=== PATIENT | female | born 1985 | race Caucasian/White ===

== ENCOUNTER → 2017-12-01 10:07 | Outpatient (CLI) | payer OTHER, SELFPAY ==
--- NOTE | 2017-12-01 10:11 | RAD_ITS ---
STUDY: X-RAY - RIGHT HAND, ATTENTION THIRD FINGER REASON FOR EXAM: Female, 32 years old. Injury. TECHNIQUE: 3 view(s) of the finger were obtained. COMPARISON: None. FINDINGS: Normal metacarpal head. Normal metacarpophalangeal joint. Normal proximal phalanx. Normal middle phalanx. Normal distal phalanx. Normal proximal interphalangeal joint. Normal distal interphalangeal joint. Soft tissue swelling. RAD/Finger(s) Min 2 Views IMPRESSION: Soft tissue swelling. No fracture is seen. Electronically Signed: Abdon Holder MD at 10:37 EDT Tel [phone], Service support ,
== END ==
PROVIDERS: Visit Provider Physician Assistant Surgical
DX: S60.031A Contusion of right middle finger without damage to nail, initial encounter (principal)
CPT/HCPCS: 73140

== ENCOUNTER 2017-12-28 09:49 | Emergency (ER) | payer OTHER, SELFPAY ==
[2017-12-28 09:50] VITALS: BP 147/88; PULSE 107; RESP 14; TEMP 36.6; O2SAT 98; BMI 25.0
[2017-12-28 10:07] VITALS: BP 144/97; PULSE 92; RESP 13; O2SAT 100
--- NOTE | 2017-12-28 10:07 | RAD_ITS ---
STUDY: X-RAY CHEST REASON FOR EXAM: Female, 32 years old. 3 day history of chest pain. TECHNIQUE: Single AP portable view of the chest. COMPARISON: None. FINDINGS: EKG electrodes are seen. The lungs are clear and expanded. There is no demonstrated pleural abnormality. Normal size heart. Normal mediastinum and kael. Normal visualized pulmonary arteries. Normal visualized aortic arch and descending thoracic aorta. Normal visualized thoracic spine. Normal visualized ribs, clavicles, and shoulders. There is no demonstrated abnormality of the visualized soft tissue structures of the upper abdomen. RAD/Chest 1 View (Portable) IMPRESSION: Normal x-ray examination of the chest. Electronically Signed: Abdon Holder MD at 10:44 EDT Tel [phone], Service support ,
--- NOTE | 2017-12-28 10:07 | EKG12_ITS ---
Test Reason : CP Blood Pressure : / mmHG Vent. Rate : 092 BPM Atrial Rate : 092 BPM P-R Int : 132 ms QRS Dur : 088 ms QT Int : 350 ms P-R-T Axes : 070 090 044 degrees QTc Int : 432 ms Normal sinus rhythm Normal ECG Confirmed by RONNIE BARRIOS, RICARDO ([id number]), editorial director ITALO WANG ([id number] on 01/02/2018 2:07:11 PM Referred By: HERMINIA Confirmed By:RICARDO TRUJILLO MD
[2017-12-28 10:09] VITALS: O2SAT 100
[2017-12-28] MEDS: Ibuprofen 200 MG Tablet 400 MG PO (10:16)
[2017-12-28] MEDS: 0.9% Normal Saline 1,000 ML 1000 ML IV (10:16)
[2017-12-28 10:23] LABS: Absolute Lymphocyte Count 2.74 X10^3/ul (0.83-4.51); Absolute Neutrophil Count 5.9 X10^3/uL (2.0-7.7); Basophil# 0.03 X10^3/uL; Basophil% 0.3 % (0-1); Eosinophil# 0.13 X10^3/uL; Eosinophils% 1.4 % (0-5); Hematocrit 42.5 % (37-47); Hemoglobin 14.5 g/dl (12.0-15.0); Lymphocyte # 2.74 X10^3/ul (4.0); Lymphocyte % 29.1 % (19-41); Mean Corp Hgb Conc 34.1 g/gl (32-36); Mean Corpuscular Hgb 31.9 pg (27.0-32.0); Mean Corpuscular Volume 93.6 fL (81-99); Mean Platelet Vol. 10.4 fl (6.2-12.0); Monocyte# 0.64 X10^3/uL; Monocyte% 6.8 % (0-10); Neutrophil # 5.87 X10^3/uL (2.7-7.7); Neutrophil % 62.2 % (47-70); Platelet Count 255 K/mm3 (150-450); RBC Distribution Width CV 12.9 % (11.6-14.6); RBC Distribution Width SD 44.4 fl (35.1-43.9); Red Blood Count 4.54 M/mm3 (4.2-5.4); White Blood Count 9.4 K/mm3 (4.4-11.0)
[2017-12-28 10:27] LABS: POSITIVE COUNT NO; POSITIVE DIFFERENTIAL NO; POSITIVE MORPHOLOGY NO
[2017-12-28 10:34] LABS: Bacteria 0 SEEN /hpf (None Seen); Mucous, Urine 0 SEEN /hpf (<or=2+); Squamous Epithelial Cells - UA 0 SEEN /hpf (5-10)
[2017-12-28 10:37] LABS: Anion Gap 6 (5-15); BUN 6 mg/dL (7-18); BUN/Creat Ratio 7.3 RATIO (10-20); Calcium,Total 8.7 mg/dL (8.5-10.1); Chloride 106 mmol/L (98-107); Creatinine, Serum 0.82 mg/dL (0.55-1.02); EST Glomerular Filtration Rate 86 mL/min (>60); Est Glom Filt Rate - Afr Amer 104 mL/min (>60); Estimated Creatinine Clearance 87.38 ml/min; Glucose 112 mg/dL (74-106); Pregnancy, Serum, hCG Quali. NEGATIVE Negative (0-9 Nonpreg); Sodium Level 138 mmol/L (136-145)
[2017-12-28 10:44] LABS: D-Dimer Quantitative (DVT/PE) 0.41 FEU/ug/m (0.27-0.49)
[2017-12-28 10:47] LABS: Color, Urine Yellow (Yellow); Glucose, Dipstick Normal (Normal); Ketone-Dipstick Negative (Negative); Leukocyte Esterase-Dipstick 25 /ul (Negative); Nitrite-Dipstick Negative (Negative); Occult Blood-Urine 10 /ul (Negative); Protein-Dipstick Negative (Negative); Urine Bilirubin Dipstick Negative (Negative); Urine Clarity Clear (Clear); Urine Urobilinogen Normal (Normal)
[2017-12-28 10:53] LABS: Red Blood Cells-Urine 0-5 SEEN /hpf (0-5); White Blood Cells 0-5 SEEN /hpf (0-5)
--- NOTE | 2017-12-28 11:01 | ED.DCSUM_ITS ---
- ER Visit Summary Date of Service: 12/28/17 Chief Complaint: Chest pain History of Present Illness: The patient is a 32 F with no primary care physician. She reports that she has chest pain that began 3 days ago. Sick continuous waxing and waning pain. It is sharp. It is above her left breast and radiates down below her left breast. Is 10 out of 10 at worst and 410 currently. Is worsened by coughing. It is relieved by not coughing. She reports that she has shortness of breath began at 4 AM. No personal history of DVT. No recent travel. No ankle swelling or calf pain. On review of systems patient complains of frequent urination for the past 2 weeks. No dysuria. Physical Examination: Vitals: Stable. Afebrile. General: Well-nourished and well-developed. Head: Normocephalic atraumatic. Neck: Supple, no lymphadenopathy. No JVD. Nontender. Cardiovascular: Regular rate and rhythm. No murmurs. Respiratory: No respiratory distress. Clear to auscultation bilaterally. Mild tenderness palpation over the left side of her chest that does reproduce her pain. Abdominal: Soft, nontender, nondistended, normal bowel sounds. No guarding, rebound, or peritoneal signs. Back: Nontender. Extremities: Nontender, no edema. Skin: Normal color, no rash. Neurologic: Alert and oriented ?3. Cranial nerves II through XII are intact. Normal strength and sensation. Psych: Normal affect. Test Results: EKG is sinus at [address] changes. Is unchanged since January of last year. Chest x-ray is normal. Troponin, d-dimer, test are negative. Urinalysis is negative. Chem-7 is more for BUN of 6 and glucose 112. CBC is normal. Emergency Department Course and Treatment: Patient was treated with ibuprofen p.o. and is resting comfortably. Treatment Plan: Patient will be discharged with instructions to follow-up with Dr. Bryce Selby III in 1 week if not improving. She will be placed on naproxen. Return to the emergency department for any worsening symptoms. Disposition: To home in improved and stable condition. Impression: 1. Atypical chest pain. 2. DANE score of 0. This note was generated with [employer] software. It may contain incorrect words, spelling, and punctuation that were not noted in review of the chart prior to signing ED Disposition - Plan for ED Patient: Chief Complaint: Chest Pain Instructions: ED Chest Pain Atypical Unkn Cause Prescriptions: Naproxen [Naprosyn] 500 mg PO BID #14 tablet Referrals: Bryce Selby III, MD [STAFF PHYSICIAN] - 1 Week if not improving
[2017-12-28 11:16] VITALS: BP 121/90; PULSE 84; RESP 16; O2SAT 98
--- NOTE | 2017-12-28 11:17 | ED.RN ---
THIS NURSE REVIEWED D/C INSTRUCTIONS WITH PT. PT VERBALIZED UNDERSTANDING OF INSTRUCTIONS. IV D/C. IV CATHETER INTACT. PT TOLERATED WELL. PT DENIES FURTHER NEEDS OR QUESTIONS AT THIS TIME.
== END 2017-12-28 11:18 | disposition home or self-care (01) ==
PROVIDERS: Emergency Provider Emergency Medicine
DX: R07.89 Other chest pain (principal); Z72.0 Tobacco use
CPT/HCPCS: 71045; 80048; 81001; 84484; 84703; 85025; 85379; 93005; 96360; 99285; J7030; A4216

== ENCOUNTER 2018-03-13 22:01 | Emergency (ER) | payer OTHER, SELFPAY ==
[2018-03-13 22:02] VITALS: BP 156/103; PULSE 134; RESP 28; TEMP 37.1; O2SAT 98; BMI 22.8
[2018-03-13 22:06] VITALS: PULSE 119; RESP 21; O2SAT 98
[2018-03-13 22:48] LABS: Absolute Neutrophil Count 7.2 X10^3/uL (2.0-7.7); Basophil# 0.06 X10^3/uL; Basophil% 0.4 % (0-1); Differential Indicated SCAN CRITERIA MET; Eosinophil# 0.17 X10^3/uL; Eosinophils% 1.3 % (0-5); Hematocrit 43.3 % (37-47); Lymphocyte % 40.4 % (19-41); Mean Corp Hgb Conc 34.6 g/gl (32-36); Mean Corpuscular Hgb 32.5 pg (27.0-32.0); Mean Corpuscular Volume 93.7 fL (81-99); Mean Platelet Vol. 10.6 fl (6.2-12.0); Monocyte% 5.1 % (0-10); Neutrophil # 7.15 X10^3/uL (2.7-7.7); Neutrophil % 52.7 % (47-70); POSITIVE COUNT NO; POSITIVE DIFFERENTIAL YES; POSITIVE MORPHOLOGY NO; Platelet Count 287 K/mm3 (150-450); RBC Distribution Width CV 12.7 % (11.6-14.6); RBC Distribution Width SD 43.3 fl (35.1-43.9); Red Blood Count 4.62 M/mm3 (4.2-5.4); White Blood Count 13.6 K/mm3 (4.4-11.0)
[2018-03-13 23:07] LABS: AST(SGOT) 20 U/L (15-37); Alanine Aminotransfer ALT/SGPT 21 U/L (13-56); Albumin, Serum 3.9 g/dL (3.2-5.0); Alkaline Phosphatase 61 U/L (45-117); Anion Gap 12 (5-15); BUN 4 mg/dL (7-18); BUN/Creat Ratio 5.7 RATIO (10-20); Calcium,Total 8.7 mg/dL (8.5-10.1); Chloride 102 mmol/L (98-107); EST Glomerular Filtration Rate 103 mL/min (>60); Est Glom Filt Rate - Afr Amer 125 mL/min (>60); Estimated Creatinine Clearance 91.25 ml/min; Globulin 3.9 g/dL (2.2-4.2); Glucose 78 mg/dL (74-106); Potassium 3.7 mmol/L (3.5-5.1); Protein, Total 7.8 g/dL (6.4-8.2); Sodium Level 136 mmol/L (136-145)
[2018-03-13 23:09] LABS: Anisocytosis RARE; Macrocytosis RARE; Platelet Estimate ADEQUATE (ADEQ)
[2018-03-13 23:16] LABS: Bacteria 0 SEEN /hpf (None Seen); Mucous, Urine 0 SEEN /hpf (<or=2+); Red Blood Cells-Urine 0 SEEN /hpf (0-5)
[2018-03-13 23:19] VITALS: BP 118/77; PULSE 111; RESP 18; O2SAT 98
[2018-03-13 23:19] LABS: Color, Urine Straw (Yellow); Glucose, Dipstick Normal (Normal); Ketone-Dipstick Negative (Negative); Leukocyte Esterase-Dipstick 100 /ul (Negative); Nitrite-Dipstick Negative (Negative); Occult Blood-Urine Negative /ul (Negative); Protein-Dipstick Negative (Negative); Specific Gravity, Urine 1.005 (1.002-1.030); Urine Bilirubin Dipstick Negative (Negative); Urine Clarity Clear (Clear); Urine Urobilinogen Normal (Normal); Urine pH 6.5 (5.0 - 8.0)
[2018-03-13 23:21] LABS: Internal QC Validated? YES +Cl - CLEAR BKGD; Pregnancy, Urine Negative Negative
[2018-03-13 23:26] LABS: Squamous Epithelial Cells - UA 0-5 SEEN /hpf (5-10); White Blood Cells 0-5 SEEN /hpf (0-5)
[2018-03-13] MEDS: Nicotine Polacrilex 2 MG GUM PO (23:53)
--- NOTE | 2018-03-13 23:56 | ED.RN ---
THIS NURSE WENT IN TO TALK TO PATIENT, PATIENT ASKED FOR NICOTINE GUM AND WANTED TO KNOW WHAT WAS GOING ON WITH HER. THIS NURSE EXPLAINED THE PROCESS TO THE PATIENT IN DETAIL AND THEN ASKED THE DR IBARRA IF THE PATIENT COULD HAVE SOME NICOTINE GUM, DR. IBARRA ORDERED THE NICOTINE GUM FOR THE PATIENT AND THE PATIENT WAS GIVEN THE GUM AND A SPRITE
[2018-03-14] VITALS (7 sets, daily range): BP systolic 114–130; BP diastolic 84–97; PULSE 82–101; RESP 12–18; O2SAT 96–99
[2018-03-14] LABS: Amphetamine Urine VISTA NEGATIVE (<1000 ng/mL); Barbiturate Urine VISTA NEGATIVE (< 200 ng/mL); Benzodiazepine Urine VISTA NEGATIVE (< 200 ng/mL); Cocaine Urine VISTA NEGATIVE (< 300 ng/mL); Ecstacy Urine VISTA NEGATIVE (< 500 ng/mL); Methadone Urine VISTA NEGATIVE (< 300 ng/mL); PCP Urine VISTA NEGATIVE (< 25 ng/mL); THC Urine VISTA NEGATIVE (< 50 ng/mL); Vista UDS pH Range 6
--- NOTE | 2018-03-14 00:40 | ED.DCSUM_ITS ---
- ER Visit Summary Date of Service: 03/14/18 Chief Complaint: [suicidal, intoxicated] History of Present Illness: The patient is a 32 F [who presents after having suicidal thoughts and intentions at home. She is currently intoxicated. She is not sure how many beers she drank today. She denies any overdose or ingestion. She has no specific plan to harm herself. She is tearful at bedside but otherwise appears in no acute distress.] Physical Examination: [General: The patient appears well and in no apparent distress. Patient is resting comfortably on cart. Skin: Warm, dry, no pallor noted. No rash. Head: Normocephalic, atraumatic Neck: Supple, nontender. ENT: Moist mucus membranes, pharynx within normal limits. Cardiovascular: Regular Rate and Rhythm, no gallups or rubs Respiratory: Patient is in no distress, no accessory muscle use, lungs are clear to auscultation, no wheezing, rales or rhonchi Musculoskeletal: normal ROM, no deformity, no tenderness, no swelling. 2+ radial and DP pulses symmetric. GI: No tenderness to palpation, no masses appreciated. No rebound, guarding, or rigidity noted. Neurological: A&O, normal strength and sensation. Psychiatric: Cooperative] Test Results: [Bloodwork overall unremarkable. Alcohol level is elevated.] Emergency Department Course and Treatment: [Patient will be observed here until clinically sober to be evaluated by mobile crisis. Blood work overall unremarkable. HCG negative. Toxicology screen is negative. Alcohol level was 200. Patient was observed here and remained stable. Patient was evaluated by crisis and they are recommending transfer and placement for admission. Patient was pink slipped. She was given an oral dose of Librium. On reevaluation at 0515 she is tearful but has no evidence of DTs or withdrawal symptoms on exam. Disposition is transfer for admission.] Treatment Plan: [See above] Disposition: [Transfer, admission] Impression: [Suicidal ideations, alcohol abuse] This note was generated with [employer] dictation software. It may contain incorrect words, spelling, and punctuation that were not noted in review of the chart prior to signing ED Disposition - Plan for ED Patient: Chief Complaint: Suicidal Referrals: Care Physician,No Primary [Primary Care Provider] -
--- NOTE | 2018-03-14 04:36 | ED.RN ---
[facility]NR[facility] TO [facility] ER
[2018-03-14] MEDS: chlordiazePOXIDE 25 MG Capsule 50 MG PO (05:44)
--- NOTE | 2018-03-14 06:58 | ED.RN ---
BREAKFAST TRAY ORDERED.
[2018-03-14] MEDS: LORazepam 1 MG Tablet PO (08:23)
--- NOTE | 2018-03-14 08:48 | ED.RN ---
PT CONCERNED WITH TRANSFER TO [facility]. PT STATES WANTS TO GO HOME, PT INFORMED THAT SHE IS PINK SLIPPED AND UNABLE TO LEAVE. PT SPOUSE ARRIVED AND APPEARED AGITATED, THREATENED TO TAKE PT HOME DESPITE PINK SLIP. SPOUSE WALKED BACK TO CRISIS OFFICE TWICE AND CRISIS COUNSELOR BECAME VERY UNCOMFORTABLE. SPOUSE CONTINUED TO MAKE THREATS TO TAKE PT HOME CITING DIFFICULTY WITH TRANSPORTATION AND FINANCIAL ISSUES. SPOUSE BECAME FURTHER AGITATED AND THREATENED TO FORCIBLY TAKE PT HOME. PD WAS CONTACTED TO DE-ESCALATE SPOUSE. AFTER POLICE INTERVENTION, IT WAS EXPLAINED TO SPOUSE AND PT THAT RESOURCES WOULD BE CHECKED ON TO HELP WITH TRANSPORTATION AND OTHER NEEDS DURING THE ADMISSION OF THE PT. SPOUSE WAS MORE RECEPTIVE. CASE MANAGEMENT WILL BE CONTACTED TO SPEAK WITH THE FAMILY ABOUT POSSIBLE RESOURCES.
--- NOTE | 2018-03-14 10:11 | CM.ED ---
Social Work Note Pt and spouse requesting to speak with SW in regards to services available. Introduced self and role at [facility]. Pt and spouse state that they make too much to qualify for Medicaid. Concern is with the stability of their car. Inquire if they are linked with churches and they decline. Educate to local churches that have been known to help others in the past. Also educated to [employer] and informed that they have provided gas cards in the past, but that may not help their vehicle situation. Inquire if the pt's spouse can visit her and inform that SW believes they have visitation hours, but they will need to contact the facility to verify. No further needs at this time. Spouse is running home to get items for pt, and will be returning to [facility] with them. Transport is setup for 1100 per [place]. No further needs at this time. Plan: [facility]. Heather Guzman, CHIEF MEDICAL PHYSICIST, COUNT ROOM CLERK
[2018-03-14 14:54] LABS: Pathologist Review Reviewed
== END 2018-03-14 11:23 ==
PROVIDERS: Emergency Provider Emergency Medicine
DX: R45.851 Suicidal ideations (principal); F10.129 Alcohol abuse with intoxication, unspecified; Y90.7 Blood alcohol level of 200-239 mg/100 ml; Z72.0 Tobacco use; Z79.1 Long term (current) use of non-steroidal anti-inflammatories (NSAID)
CPT/HCPCS: 80053; 80307; 80320; 81001; 81025; 85025; 99285; J7030; G0480

== ENCOUNTER 2018-05-09 17:36 | Emergency (ER) | payer OTHER, SELFPAY ==
[2018-05-09 17:36] VITALS: BP 129/81; PULSE 87; RESP 16; TEMP 36.7; O2SAT 97; BMI 29.0
--- NOTE | 2018-05-09 18:22 | ED.VISSUMM ---
- ER Visit Summary Date of Service: 05/09/18 Chief Complaint: depressed, suicidal thoughts History of Present Illness: The patient is a 32 F with history of depression and anxiety who presents for worsening depression and suicidal thoughts. Patient was hospitalized at [facility] 2 months ago. After discharge her medications were changed by her psychiatrist in the last month. The medication changes made her feel more depressed, sleepy and angry. The change then was to take her medications at night which did not help. Her doctor increased her trazodone dose which caused patient to lose her job. Patient stopped taking all her medications 10 days ago. The last 5 days she has been having increased depression, hopelessness and suicidal thoughts, although she does not want to actually harm herself. Patient is seeking help to get back on her medications that work for her. She denies any acts of self-harm. She does use alcohol and tobacco. Physical Examination: Vital signs: afebrile, hemodynamically stable, no hypoxia on room air General: well nourished, well developed, in no distress Skin: warm, dry, psoriatic rash on shins, no pallor no injuries HEENT: normocephalic and atraumatic; PERRL, EOMI, moist mucous membranes Cardiovascular: regular rate and rhythm without murmurs, no peripheral edema, 2+ pulses all distal extremities Respiratory: No increased work of breathing, lungs are clear to auscultation bilaterally, no rales, rhonchi or wheezing Abdominal: Abdomen is soft, nontender with normoactive bowel sounds, no guarding or rebound, no masses MSK: Moves all extremities, no deformities, normal strength Neuro: Awake and alert, oriented ?4. No facial droop, sensation and motor function intact and symmetric Psych: Very tearful, depressed affect, positive passive suicidal thoughts Test Results: Abnormal Lab Results 05/09/18 05/09/18 05/09/18 18:45 18:50 18:50 WBC 13.6 H RBC 4.73 Hgb 15.3 H Hct 45.0 MCV 95.1 MCH 32.3 H MCHC 34.0 RDW 13.4 RDW Differential 46.7 H Plt Count 281 MPV 10.5 Immature Gran % (Auto) 0.300 Neut % (Auto) 61.9 Lymph % (Auto) 30.4 Rooks % (Auto) 5.5 Eos % (Auto) 1.5 Baso % (Auto) 0.4 Absolute Neuts (auto) 8.4 H Absolute Lymphs (auto) 4.13 Total Counted Not Reportable Differential Comment Sodium 140 Potassium 4.1 Chloride 105 Carbon Dioxide 27.0 Anion Gap 8 BUN 5 L Creatinine 0.70 Estim Creat Clear Calc 114.84 Est GFR (MDRD) Af Amer 125 Est GFR (MDRD) Non-Af 103 BUN/Creatinine Ratio 7.2 L Glucose 92 Calcium 8.5 Total Bilirubin 0.20 AST 16 ALT 22 Alkaline Phosphatase 71 Total Protein 8.2 Albumin 4.0 Globulin 4.2 Albumin/Globulin Ratio 1.0 Serum , Qual Urine Opiates Screen NEGATIVE Urine Methadone Screen NEGATIVE Ur Barbiturates Screen NEGATIVE Ur Phencyclidine Scrn NEGATIVE Ur Amphetamines Screen NEGATIVE U Methamphetamin-MDMA NEGATIVE U Benzodiazepines Scrn NEGATIVE Urine Cocaine Screen NEGATIVE U Cannabinoids Screen NEGATIVE Ur Drug Screen Comment Ethyl Alcohol 05/09/18 05/09/18 18:50 18:50 WBC RBC Hgb Hct MCV MCH MCHC RDW RDW Differential Plt Count MPV Immature Gran % (Auto) Neut % (Auto) Lymph % (Auto) Rooks % (Auto) Eos % (Auto) Baso % (Auto) Absolute Neuts (auto) Absolute Lymphs (auto) Total Counted Differential Comment Sodium Potassium Chloride Carbon Dioxide Anion Gap BUN Creatinine Estim Creat Clear Calc Est GFR (MDRD) Af Amer Est GFR (MDRD) Non-Af BUN/Creatinine Ratio Glucose Calcium Total Bilirubin AST ALT Alkaline Phosphatase Total Protein Albumin Globulin Albumin/Globulin Ratio Serum , Qual NEGATIVE Urine Opiates Screen Urine Methadone Screen Ur Barbiturates Screen Ur Phencyclidine Scrn Ur Amphetamines Screen U Methamphetamin-MDMA U Benzodiazepines Scrn Urine Cocaine Screen U Cannabinoids Screen Ur Drug Screen Comment Ethyl Alcohol 163.0 Medications Given Discontinued Medications Lorazepam (Ativan) 1 mg PO X1 ONE Stop: 05/09/18 18:23 Last Admin: 05/09/18 18:42 Dose: 1 mg Nicotine (Nicoderm Cq (Pbkc)) 21 mg TRANSDERM. X1 ONE Stop: 05/09/18 18:31 Last Admin: 05/09/18 18:42 Dose: 21 mg Venlafaxine HCl (Effexor Xr) 37.5 mg PO X1 ONE Stop: 05/09/18 22:29 Last Admin: 05/09/18 23:21 Dose: 37.5 mg Emergency Department Course and Treatment: Patient is very tearful and anxious, and was given 1 dose of oral Ativan. Medical screening was performed. It was remarkable for alcohol level of 163. Patient was evaluated by crisis counselor, who also concluded that the patient is not actively suicidal but is seeking help to get her medications reestablished. Patient had been on Effexor and still has a prescription for it. She plans to fill it tomorrow and start back on it, as she states that is the only medication that really helped her. Patient was given 1 dose in the emergency department. She was given a list of counselors to establish care with, as she does not want to go back to the counselor that took her off of the Effexor. Upon reevaluation, patient was no longer tearful and was not suicidal. She will return if any concerns that she has worsening of her condition, including active suicidal ideation. Discharged home. Treatment Plan: [] Disposition: [] Impression: Depression This note was generated with [employer] dictation software. It may contain incorrect words, spelling, and punctuation that were not noted in review of the chart prior to signing ED Disposition - Plan for ED Patient: Disposition: Home or Assisted Living Chief Complaint: Suicidal Instructions: ED Contract, No Harm, ED Depression Referrals: Care Physician,No Primary [Primary Care Provider] - Additional Instructions: You were given a dose of Effexor tonight. Please fill your prescription and start taking it again tomorrow. Call one of the counselors on the paperwork you were given and make an appointment as soon as possible. If at any time you have worsening of your depression or have any thoughts of self-harm, please call the number you were given and/or return immediately to the emergency department for another evaluation.
[2018-05-09] MEDS: LORazepam 1 MG Tablet PO (18:42)
--- NOTE | 2018-05-09 19:00 | ED.RN ---
CALLED [facility]. EDUCATION AND TRAINING COORDINATOR STATED SCOOBY WILL BE IN TO SEE PT.
[2018-05-09 19:12] LABS: Amphetamine Urine VISTA NEGATIVE (<1000 ng/mL); Barbiturate Urine VISTA NEGATIVE (< 200 ng/mL); Benzodiazepine Urine VISTA NEGATIVE (< 200 ng/mL); Cocaine Urine VISTA NEGATIVE (< 300 ng/mL); Ecstacy Urine VISTA NEGATIVE (< 500 ng/mL); Methadone Urine VISTA NEGATIVE (< 300 ng/mL); PCP Urine VISTA NEGATIVE (< 25 ng/mL); THC Urine VISTA NEGATIVE (< 50 ng/mL); Vista UDS pH Range 6
[2018-05-09 19:13] LABS: Absolute Lymphocyte Count 4.13 X10^3/ul (0.83-4.51); Absolute Neutrophil Count 8.4 X10^3/uL (2.0-7.7); Basophil# 0.05 X10^3/uL; Basophil% 0.4 % (0-1); Eosinophils% 1.5 % (0-5); Hemoglobin 15.3 g/dl (12.0-15.0); Lymphocyte # 4.13 X10^3/ul (4.0); Lymphocyte % 30.4 % (19-41); Mean Corpuscular Hgb 32.3 pg (27.0-32.0); Mean Corpuscular Volume 95.1 fL (81-99); Mean Platelet Vol. 10.5 fl (6.2-12.0); Monocyte# 0.75 X10^3/uL; Monocyte% 5.5 % (0-10); Neutrophil % 61.9 % (47-70); Platelet Count 281 K/mm3 (150-450); RBC Distribution Width CV 13.4 % (11.6-14.6); RBC Distribution Width SD 46.7 fl (35.1-43.9); Red Blood Count 4.73 M/mm3 (4.2-5.4); White Blood Count 13.6 K/mm3 (4.4-11.0)
[2018-05-09 19:20] VITALS: RESP 12
[2018-05-09 19:24] LABS: AST(SGOT) 16 U/L (15-37); Alanine Aminotransfer ALT/SGPT 22 U/L (13-56); Alkaline Phosphatase 71 U/L (45-117); Anion Gap 8 (5-15); BUN 5 mg/dL (7-18); BUN/Creat Ratio 7.2 RATIO (10-20); Calcium,Total 8.5 mg/dL (8.5-10.1); Chloride 105 mmol/L (98-107); EST Glomerular Filtration Rate 103 mL/min (>60); Est Glom Filt Rate - Afr Amer 125 mL/min (>60); Estimated Creatinine Clearance 114.84 ml/min; Globulin 4.2 g/dL (2.2-4.2); Glucose 92 mg/dL (74-106); Potassium 4.1 mmol/L (3.5-5.1); Protein, Total 8.2 g/dL (6.4-8.2); Sodium Level 140 mmol/L (136-145)
[2018-05-09 19:27] LABS: Pregnancy, Serum, hCG Quali. NEGATIVE Negative (0-9 Nonpreg)
[2018-05-09 19:49] LABS: Differential Indicated SCAN CRITERIA MET; POSITIVE COUNT NO; POSITIVE DIFFERENTIAL NO; POSITIVE MORPHOLOGY YES
[2018-05-09 20:09] VITALS: BP 99/60; PULSE 97; RESP 16; O2SAT 97
--- NOTE | 2018-05-09 20:10 | ED.RN ---
THIS RN DID CUSTOMER SERVICE CHECK IN WITH PT. PT ASKED TO GET OUT OF THE BED, THAT THE BED IS FOR THE PT. PT HAD CHEWING TOBACCO IN MOUTH. THIS RN EDUCATED THAT SHE CANNOT HAVE CHEWING TOBACCO IN ED, AND ESPECIALLY NOT WHEN WEARING AN ALCOHOL PATCH. PT VERBALIZES UNDERSTANDING AND ASKS THIS RN TO REMOVE PATCH. PATCH REMOVED BY THIS RN AND PLACED INTO SHARPS CONTAINER. SITTER AT BEDSIDE.
[2018-05-09 21:30] VITALS: RESP 13
[2018-05-09 22:18] VITALS: BP 99/61; PULSE 101; RESP 16; O2SAT 98
--- NOTE | 2018-05-09 23:13 | ED.DEP ---
ED Disposition - Plan for ED Patient: Disposition: Home or Assisted Living Chief Complaint: Suicidal Instructions: ED Contract, No Harm, ED Depression Referrals: Care Physician,No Primary [Primary Care Provider] - Additional Instructions: You were given a dose of Effexor tonight. Please fill your prescription and start taking it again tomorrow. Call one of the counselors on the paperwork you were given and make an appointment as soon as possible. If at any time you have worsening of your depression or have any thoughts of self-harm, please call the number you were given and/or return immediately to the emergency department for another evaluation.
[2018-05-09] MEDS: Venlafaxine XR 37.5 MG Capsule PO (23:21)
[2018-05-09 23:22] VITALS: PULSE 78; RESP 14; O2SAT 97
--- NOTE | 2018-05-09 23:22 | ED.RN ---
PT GIVEN WRITTEN AND VERBAL DISCHARGE INSTRUCTIONS. PT VERBALIZES UNDERSTANDING. PT EDUCATED ON FOLLOW UP AND TO RETURN TO ED FOR ANY NEW OR WORSENED SX. PT VERBALIZES UNDERSTANDING DENIES ANY FURTHER QUESTIONS. PT AMBULATES OUT OF DEPT WITH SPOUSE AFTER DRESSING SELF.
== END 2018-05-09 23:24 | disposition home or self-care (01) ==
PROVIDERS: Emergency Provider Emergency Medicine
DX: F32.9 Major depressive disorder, single episode, unspecified (principal); F41.9 Anxiety disorder, unspecified; Z91.14 Patient's other noncompliance with medication regimen; Z72.0 Tobacco use; Z79.899 Other long term (current) drug therapy
CPT/HCPCS: 80053; 80307; 80320; 84703; 85025; 99285; G0480

== ENCOUNTER 2019-06-02 16:02 | Emergency (ER) | payer OTHER, SELFPAY ==
[2019-06-02 16:04] VITALS: BP 113/81; PULSE 117; RESP 18; TEMP 37.5; O2SAT 98; BMI 27.4
--- NOTE | 2019-06-02 17:02 | CT_ITS ---
STUDY: CT ABDOMEN AND PELVIS WITH CONTRAST REASON FOR EXAM: Female, 33 years old. Right lower quadrant abdominal pain nausea vomiting RADIATION DOSAGE (If Supplied By Facility): CTDIvol = ( 9.38 ) mGy, DLP = ( 419.23 ) mGycm TECHNIQUE: CT images were obtained from the dome of the diaphragm to the symphysis pubis without oral contrast. IV Isovue 300 100 was administered. Sagittal and coronal images were reconstructed. Individualized dose optimization techniques were used for this CT. COMPARISON: None. FINDINGS: The visualized lung bases are unremarkable. The visualized portions of the heart are within normal limits. Normal liver. There is a subcentimeter hepatic cyst. Normal gallbladder and extrahepatic biliary system. Normal spleen. Normal pancreas. Normal bilateral adrenal glands. Normal right kidney. Normal left kidney. There is no intestinal obstruction. There are loops of mildly distended fluid dilated small bowel, possibly nonspecific enteritis. Appendix is normal. There is questionable thickening of the sigmoid. Normal abdominal aorta. Normal inferior vena cava. Normal retroperitoneum. Normal urinary bladder. Normal abdominal wall. Normal osseous structures. CT/Abdomen/Pelvis W IV Cont ONLY IMPRESSION: 1. No appendicitis. 2. Questionable enteritis of the sigmoid and/or small bowel, nonspecific appearance. Electronically Signed: Tapan Dia, at 18:31 EDT Tel , Service support ,
[2019-06-02 17:15] VITALS: BP 108/76; PULSE 101; RESP 18; O2SAT 96
[2019-06-02] MEDS: 0.9% Normal Saline 1,000 ML 1000 ML IV (17:16)
[2019-06-02] MEDS: Ondansetron 4 MG/2 ML Vial IV (17:17)
[2019-06-02] MEDS: Morphine 4 MG/ML Syringe IV ×2 (17:18→19:44)
[2019-06-02 17:27] LABS: Absolute Lymphocyte Count 1.54 X10^3/uL (0.83-4.51); Absolute Neutrophil Count 8.3 X10^3/uL (2.0-7.7); Basophil# 0.07 X10^3/uL; Basophil% 0.7 % (0-1); Eosinophil# 0.14 X10^3/uL; Eosinophils% 1.3 % (0-5); Hematocrit 52.9 % (37-47); Hemoglobin 17.8 g/dL (12.0-15.0); Lymphocyte # 1.54 X10^3/ul (4.0); Lymphocyte % 14.4 % (19-41); Mean Corp Hgb Conc 33.6 g/dL (32-36); Mean Platelet Vol. 10.4 fl (6.2-12.0); Monocyte# 0.62 X10^3/uL; Monocyte% 5.8 % (0-10); NRBC Flagged by Analyzer 0 % (0-5); Neutrophil % 77.3 % (47-70); Platelet Count 202 K/mm3 (150-450); RBC Distribution Width CV 12.8 % (11.6-14.6); RBC Distribution Width SD 45.3 fl (35.1-43.9); Red Blood Count 5.57 M/mm3 (4.2-5.4); White Blood Count 10.7 K/mm3 (4.4-11.0)
[2019-06-02 17:32] LABS: Color, Urine Yellow (Yellow); Glucose, Dipstick Normal (Normal); Internal QC Validated? YES +Cl - CLEAR BKGD; Leukocyte Esterase-Dipstick 100 /ul (Negative); Nitrite-Dipstick Negative (Negative); Occult Blood-Urine 25 /ul (Negative); Protein-Dipstick 15 mg/dl (Negative); Specific Gravity, Urine 1.015 (1.002-1.030); Urine Clarity Sl. Cloudy (Clear); Urine Urobilinogen 1 mg/dl (Normal)
[2019-06-02 17:36] LABS: Pregnancy, Urine Negative Negative
--- NOTE | 2019-06-02 17:36 | ED.VIS.GEN ---
History of Present Illness Chief Complaint: Nausea/Vomiting/Diarrhea Informant: Patient Onset: Yesterday Context: Gradual Onset Timing: Continuous Current Severity: Moderate Maximum Severity: Moderate Narrative: The patient presents to the emergency department with abdominal pain, nausea, vomiting, diarrhea. She states her symptoms began yesterday. She states that she had some cramping abdominal pain and the multiple bouts of loose, watery diarrhea. She states shortly after, she began to have nausea vomiting. She states that she is had multiple episodes of both. She had no blood in the emesis or in the diarrhea. She has no history of inflammatory bowel disease. She has no recent antibiotic use. She denies any recent travel. She has no history of C. difficile. She denies any recent sick contacts. Prior similar symptoms: No Recent Illness/Hospitalization: No Past Medical History - Allergies and Home Meds Allergies/Adverse Reactions: Allergies codeine Allergy (Verified 06/02/19 16:04) Itching ketorolac tromethamine [From Toradol] Allergy (Verified 06/02/19 16:04) Other HALLUCINATIONS Sulfa (Sulfonamide Antibiotics) Allergy (Verified 06/02/19 16:04) Itching tramadol Allergy (Verified 06/02/19 16:04) Other HALLUCINATION Primary Care Physician: Care Physician,No Primary [Primary Care Provider] - Prior records reviewed: Yes Past Medical History: None Smoking Status: Heavy Smoker (>10/day) Review of Systems General: Reports: Chills. Denies: Fever, Sweats Eyes: Denies: Visual changes - bilaterally, Diplopia ENT: Denies: Rhinorrhea, Sore throat Cardiovascular: Denies: Chest pain, Palpitations Respiratory: Denies: Dyspnea, Cough, Dyspnea on exertion Gastrointestinal: Reports: Abdominal pain, Nausea, Vomiting, Diarrhea. Denies: Melena, Hematochezia Genitourinary: Denies: Dysuria, Hematuria, Frequency Musculoskeletal: Denies: Back pain, Extremity Pain Skin: Denies: Rash, Wounds Neurological: Denies: Headache, Weakness, Numbness Physical Exam Vital Signs/Narrative: Vital Signs Temp Pulse Resp BP Pulse Ox 06/02/19 16:04 99.5 F H 117 H 18 113/81 H 98 Inital Vital Signs reviewed: Yes General: Well nourished, Well developed, No Acute Distress Head: Normocephalic, Atraumatic Eyes: Perrl, EOMI ENT: Moist mucous membranes, No rhinorrhea Neck: Supple, Nontender Cardiovascular: Regular rate, Regular rhythm, No murmurs Respiratory: No distress, CTA bilaterally, Chest nontender Abdomen: Soft, Nondistended, Normal bowel sounds, Tender. Negative for: Guarding, Rebound tenderness Back: Nontender, Normal Inspection Extremities: Nontender, No edema Skin: Normal color, No rash Neurological: Alert, Oriented x3, Cranial nerves II-XII grossly intact, Normal Strength, Normal Sensation Psychological: Normal affect, Normal Mood Diagnostic/Tx/Re-eval Clinical Impression(s) from Imaging Studies Abdomen/Pelvis CT 06/02/19 17:02 IMPRESSION: 1. No appendicitis. 2. Questionable enteritis of the sigmoid and/or small bowel, nonspecific appearance. Electronically Signed: Tapan Dia, at 18:31 EDT Tel , Service support , Abnormal Lab Results 06/02/19 06/02/19 06/02/19 17:15 17:15 17:15 WBC 10.7 RBC 5.57 H Hgb 17.8 H Hct 52.9 H MCV 95.0 MCH 32.0 MCHC 33.6 RDW Std Deviation 45.3 H RDW Coeff of Bennett 12.8 Plt Count 202 MPV 10.4 Immature Gran % (Auto) 0.500 Neut % (Auto) 77.3 H Lymph % (Auto) 14.4 L Turner % (Auto) 5.8 Eos % (Auto) 1.3 Baso % (Auto) 0.7 Absolute Neuts (auto) 8.3 H Absolute Lymphs (auto) 1.54 Nucleated RBC % 0 Sodium 137 Potassium 3.6 Chloride 102 Carbon Dioxide 27.0 Anion Gap 8 BUN 8 Creatinine 0.91 Estim Creat Clear Calc 79.96 Est GFR (MDRD) Af Amer 91 Est GFR (MDRD) Non-Af 75 BUN/Creatinine Ratio 8.8 L Glucose 123 H Calcium 8.9 Total Bilirubin 0.50 AST 15 ALT 17 Alkaline Phosphatase 69 Total Protein 7.9 Albumin 3.9 Globulin 4.0 Albumin/Globulin Ratio 1.0 Urine Color Urine Clarity Urine pH Ur Specific [place] Urine Protein Urine Glucose (UA) Urine Ketones Urine Occult Blood Urine Nitrite Urine Bilirubin Urine Urobilinogen Ur Leukocyte Esterase Urine RBC Urine WBC Ur Squamous Epith Cells Urine Bacteria Urine Mucus Urine Test Negative 06/02/19 17:15 WBC RBC Hgb Hct MCV MCH MCHC RDW Std Deviation RDW Coeff of Bennett Plt Count MPV Immature Gran % (Auto) Neut % (Auto) Lymph % (Auto) Turner % (Auto) Eos % (Auto) Baso % (Auto) Absolute Neuts (auto) Absolute Lymphs (auto) Nucleated RBC % Sodium Potassium Chloride Carbon Dioxide Anion Gap BUN Creatinine Estim Creat Clear Calc Est GFR (MDRD) Af Amer Est GFR (MDRD) Non-Af BUN/Creatinine Ratio Glucose Calcium Total Bilirubin AST ALT Alkaline Phosphatase Total Protein Albumin Globulin Albumin/Globulin Ratio Urine Color Yellow Urine Clarity Sl. Cloudy Urine pH 5.0 Ur Specific [place] 1.015 Urine Protein 15 H Urine Glucose (UA) Normal Urine Ketones 150 H Urine Occult Blood 25 H Urine Nitrite Negative Urine Bilirubin 1 H Urine Urobilinogen 1 H Ur Leukocyte Esterase 100 H Urine RBC 0-5 SEEN Urine WBC 0-5 SEEN Ur Squamous Epith Cells 5-10 SEEN Urine Bacteria RARE Urine Mucus 1+ Urine Test - Medical Decision Making The patient presents to the emergency department nausea, vomiting, diarrhea. IV was established. She was given fluids, antiemetics, and analgesics. Her pain and nausea were mildly improved. Screening labs are unremarkable. She does have ketones in her urine, but no anion gap. CT was obtained of her abdomen given her pain. There was questionable enteritis, but no other acute process. Her medications were redosed. On reevaluation, she is feeling improved. At this point, I do feel that the patient is safe for outpatient therapy. She will be prescribed Bentyl and antiemetics. She was counseled concerning symptoms and reasons to return. She will be discharged home. Impression 1. Viral gastroenteritis She ED Disposition - Plan for ED Patient: Instructions: FOOD POISONING or GASTROENTERITIS (6y-Adult) Prescriptions: Dicyclomine HCl [Bentyl] 20 mg PO TIDAC #20 cap Prescription Printed proMETHazine tablet [Phenergan] 25 mg PO Q6H PRN PRN #10 tab PRN Reason: Nausea Prescription Printed Referrals: Care Physician,No Primary [Primary Care Provider] -
[2019-06-02 17:37] LABS: Urine Bilirubin Dipstick 1 mg/dL (Negative)
[2019-06-02 17:38] LABS: Ketone-Dipstick 150 mg/dl (Negative)
[2019-06-02 17:43] LABS: AST(SGOT) 15 U/L (15-37); Alanine Aminotransfer ALT/SGPT 17 U/L (13-56); Albumin, Serum 3.9 g/dL (3.2-5.0); Alkaline Phosphatase 69 U/L (45-117); Anion Gap 8 (5-15); BUN 8 mg/dL (7-18); BUN/Creat Ratio 8.8 RATIO (10-20); Calcium,Total 8.9 mg/dL (8.5-10.1); Chloride 102 mmol/L (98-107); Creatinine, Serum 0.91 mg/dL (0.55-1.02); EST Glomerular Filtration Rate 75 mL/min (>60); Est Glom Filt Rate - Afr Amer 91 mL/min (>60); Estimated Creatinine Clearance 79.96 ml/min; Glucose 123 mg/dL (74-106); Potassium 3.6 mmol/L (3.5-5.1); Protein, Total 7.9 g/dL (6.4-8.2); Sodium Level 137 mmol/L (136-145)
[2019-06-02 18:05] LABS: Bacteria RARE /hpf (None Seen); Mucous, Urine 1+ /hpf (<or=2+); Red Blood Cells-Urine 0-5 SEEN /hpf (0-5); Squamous Epithelial Cells - UA 5-10 SEEN /hpf (5-10); White Blood Cells 0-5 SEEN /hpf (0-5)
[2019-06-02] MEDS: 0.9% Normal Saline 1,000 ML 999 ML IV (19:44)
[2019-06-02] MEDS: proMETHazine 25 MG/ML Syringe 6.25 MG IV (19:44)
[2019-06-02 19:46] VITALS: BP 124/79; PULSE 83; RESP 18; O2SAT 98
== END 2019-06-02 20:26 | disposition home or self-care (01) ==
LOC: ED 17:42
PROVIDERS: Emergency Provider Emergency Medicine
DX: A08.4 Viral intestinal infection, unspecified (principal); F17.200 Nicotine dependence, unspecified, uncomplicated
CPT/HCPCS: 74177; 80053; 81001; 81025; 85025; 96361; 96374; 96375; 96376; 99283; J7030; Q9967; J2405

== ENCOUNTER 2019-06-08 12:55 | Emergency (ER) | payer OTHER, SELFPAY ==
[2019-06-08 12:55] VITALS: BP 117/73; PULSE 100; RESP 18; TEMP 36.2; BMI 27.4
--- NOTE | 2019-06-08 13:28 | ED.VISSUMM ---
- ER Visit Summary Date of Service: 06/08/19 Chief Complaint: Left-sided abdominal pain. History of Present Illness: The patient is a 33 F prior tubal ligation. Patient had left-sided abdominal pain for about a week. Associated nausea vomiting diarrhea. Was treated in emergency department all last weekend and had negative work-up at that time CBC, chemistry negative test and a negative CT of the abdomen and pelvis with IV contrast. She is continued to have symptoms this week was seen in urgent care who told her they thought she had diverticulitis and started on Cipro and Flagyl. The CAT scan a week ago did not show diverticulitis. She also had a negative urinalysis a week ago. Physical Examination: Older female vital signs are stable afebrile. No acute distress. H EENT exam unremarkable. Neck nontender no lymphadenopathy. Lungs clear to auscultation bilaterally. Heart regular rhythm no murmur. Abdomen is soft. Nondistended. Normal bowel sounds. She has mild left-sided tenderness. No rebound or guarding. No rigidity. No hernia or mass. No signs of obstruction. Right upper right lower quadrant unremarkable. She is moving all 4 extremities. No edema. Back nontender. Neurologically she is awake and alert. Test Results: I reviewed the patient's recent work-up in the emergency department it was unremarkable. Including a CT abdomen pelvis with IV contrast, UA, test, CBC and chemistry. normal white count of 05/24/2016. Chemistries normal normal creatinine and gap. Emergency Department Course and Treatment: Treated with IV fluids morphine and Zofran. He is doing well on repeat exam at 1530. We went over all of her test results on this visit and her last ER visit. Treatment Plan: Stop both the Cipro and Flagyl. Zofran as needed for nausea. Follow-up if not improving. [place] diet and increase slowly. Disposition: Discharge Impression: Acute abdominal pain with nausea, vomiting diarrhea urinary to viral gastroenteritis and side effect of recent antibiotics This note was generated with [employer] dictation software. It may contain incorrect words, spelling, and punctuation that were not noted in review of the chart prior to signing ED Disposition - Plan for ED Patient: Referrals: Care Physician,No Primary [Primary Care Provider] -
[2019-06-08] MEDS: 0.9% Normal Saline 1,000 ML 1000 ML IV (13:43)
[2019-06-08] MEDS: Ondansetron 4 MG/2 ML Vial IV (13:43)
[2019-06-08] MEDS: morphine 8 MG/ML Syringe 6 MG IV (13:43)
[2019-06-08 14:07] LABS: Absolute Lymphocyte Count 2.62 X10^3/uL (0.83-4.51); Absolute Neutrophil Count 6.5 X10^3/uL (2.0-7.7); Basophil# 0.07 X10^3/uL; Basophil% 0.7 % (0-1); Eosinophil# 0.34 X10^3/uL; Eosinophils% 3.3 % (0-5); Hemoglobin 16.8 g/dL (12.0-15.0); Lymphocyte # 2.62 X10^3/ul (4.0); Lymphocyte % 25.8 % (19-41); Mean Corp Hgb Conc 33.6 g/dL (32-36); Mean Corpuscular Hgb 32.1 pg (27.0-32.0); Mean Corpuscular Volume 95.4 fL (81-99); Mean Platelet Vol. 10.6 fl (6.2-12.0); Monocyte# 0.62 X10^3/uL; Monocyte% 6.1 % (0-10); NRBC Flagged by Analyzer 0 % (0-5); Neutrophil # 6.47 X10^3/uL (2.7-7.7); Neutrophil % 63.8 % (47-70); Platelet Count 256 K/mm3 (150-450); RBC Distribution Width CV 12.7 % (11.6-14.6); RBC Distribution Width SD 44.9 fl (35.1-43.9); Red Blood Count 5.24 M/mm3 (4.2-5.4); White Blood Count 10.2 K/mm3 (4.4-11.0)
[2019-06-08 14:19] LABS: Anion Gap 5 (5-15); BUN 4 mg/dL (7-18); BUN/Creat Ratio 5.3 RATIO (10-20); Calcium,Total 8.9 mg/dL (8.5-10.1); Chloride 105 mmol/L (98-107); Creatinine, Serum 0.76 mg/dL (0.55-1.02); EST Glomerular Filtration Rate 93 mL/min (>60); Est Glom Filt Rate - Afr Amer 112 mL/min (>60); Estimated Creatinine Clearance 95.75 ml/min; Glucose 92 mg/dL (74-106); Potassium 3.8 mmol/L (3.5-5.1); Sodium Level 139 mmol/L (136-145)
--- NOTE | 2019-06-08 15:37 | ED.DEP ---
ED Disposition - Plan for ED Patient: Disposition: Home or Assisted Living Instructions: GASTROENTERITIS, Viral (6y-Adult) Referrals: Murtaza Wilson MD [STAFF PHYSICIAN] - 3-5 Days if not improving Additional Instructions: Stop both the Cipro and Flagyl I think there are causing you more problems than good. Your most recent CAT scan there was no signs of diverticulitis. Zofran as needed for nausea. [place] diet and increase slowly as tolerated. Follow-up if not improving.
== END 2019-06-08 15:58 | disposition home or self-care (01) ==
PROVIDERS: Emergency Provider Emergency Medicine
DX: A08.4 Viral intestinal infection, unspecified (principal); K52.1 Toxic gastroenteritis and colitis; T36.8X5A Adverse effect of other systemic antibiotics, initial encounter; R11.2 Nausea with vomiting, unspecified; R10.9 Unspecified abdominal pain; Z72.0 Tobacco use
CPT/HCPCS: 80048; 85025; 96361; 96374; 96375; 99283; J7030; J2405

== ENCOUNTER 2019-10-30 17:20 | Emergency (ER) | payer OTHER, SELFPAY ==
[2019-10-30 17:21] VITALS: BP 134/85; PULSE 80; RESP 16; TEMP 36.1; BMI 24.0
--- NOTE | 2019-10-30 17:50 | ED.VISSUMM ---
- ER Visit Summary Date of Service: 10/30/19 Chief Complaint: Left wrist pain History of Present Illness: The patient is a 34 F who presents with left wrist pain that has been getting worse over the past 3 days. Patient states that today she was shoveling mulch when she felt worsening pain. Patient states the swelling became worse today. Patient states her pain is aching but is sharp with certain movements. Patient denies any paresthesias or weakness. Patient denies any specific trauma or injury. Physical Examination: Vital signs are stable. Patient is afebrile. Patient is in no acute distress. Musculoskeletal exam reveals tenderness over the volar aspect of the left wrist. There is some mild edema. There is no ecchymosis. There is no deformity noted. Range of motion was slightly limited in flexion and extension secondary to pain. Sensation was intact to light touch in the radial, median, and ulnar areas. Strength is 5/5 in the radial, median, and ulnar areas. Radial pulses are equal bilaterally. Capillary refill was less than 2 seconds in all digits. Emergency Department Course and Treatment: Patient was given a Velcro wrist splint. Patient was given a prescription for Naprosyn. Patient was instructed to ice and elevate the left wrist. Patient was instructed to follow-up with her primary care physician in 5 to 7 days. Patient understood and was agreeable with the plan. All questions were answered. Disposition: Discharge home Impression: Tendinitis left wrist This note was generated with [employer] dictation software. It may contain incorrect words, spelling, and punctuation that were not noted in review of the chart prior to signing ED Disposition - Plan for ED Patient: Disposition: Home or Assisted Living Diagnosis: Tendinitis of left wrist Instructions: Tendonitis Prescriptions: Naproxen [Naprosyn] 500 mg PO BID PRN #20 tab Prescription Printed Referrals: Care Physician,No Primary [Primary Care Provider] - 5-7 Days
[2019-10-30] MEDS: Naproxen 500 MG Tablet PO (18:22)
== END 2019-10-30 18:30 | disposition home or self-care (01) ==
PROVIDERS: Emergency Provider Emergency Medicine
DX: M77.9 Enthesopathy, unspecified (principal)
CPT/HCPCS: 99283

== ENCOUNTER 2020-03-11 11:39 | Emergency (ER) | payer SELFPAY ==
[2020-03-11 11:40] VITALS: BP 128/79; PULSE 96; RESP 16; TEMP 37.1; O2SAT 100; BMI 25.9
--- NOTE | 2020-03-11 12:03 | EKG12_ITS ---
Test Reason : VAG BLEEDING Blood Pressure : / mmHG Vent. Rate : 077 BPM Atrial Rate : 077 BPM P-R Int : 136 ms QRS Dur : 090 ms QT Int : 372 ms P-R-T Axes : 054 078 051 degrees QTc Int : 420 ms Normal sinus rhythm Normal ECG Confirmed by NESSA BARRIOS, TIESHA ([id number]), editor managing director PIPPA ARNOLD ([id number]) on 03/17/2020 8:47:22 AM Referred By: RAMIN Confirmed By:TIESHA SZYMANSKI MD
--- NOTE | 2020-03-11 12:05 | ED.DCSUM_ITS ---
History of Present Illness Chief Complaint: Vag Bleeding Informant: Patient Narrative: Patient is a 34-year-old female who presents to the emergency department for heavy vaginal bleeding. She states that she has been bleeding since Monday. She is been going through about 5 tampons per day. She normally would be done with her period 2 days ago. She states that it is slightly slowing down today. She feels very tired and is having a difficult time staying awake. No associated chest pain, shortness of breath or heart palpitations. Never had this happen before. Last menstrual period was 1 month ago and she is very regular. She denies any abdominal pain. No headache, stiff neck or rashes. She is a current everyday smoker. She does admit to drinking 5 or 6 beers per day. No other bleeding or easy bruising. Of note patient states that her fatigue did start prior to the vaginal bleeding. She has never required a transfusion before in the past. Past Medical History - Allergies and Home Meds Allergies/Adverse Reactions: Allergies ketorolac tromethamine [From Toradol] Allergy (Verified 03/11/20 11:39) Other HALLUCINATIONS Sulfa (Sulfonamide Antibiotics) Allergy (Verified 03/11/20 11:39) Itching tramadol Allergy (Verified 03/11/20 11:39) Other HALLUCINATION Primary Care Physician: Ladan Campos MD [STAFF PHYSICIAN] - 2 Days Lucero Ruiz MD [STAFF PHYSICIAN] - 1-2 Days if not improving Care Physician,No Primary [Primary Care Provider] - Prior records reviewed: Yes Past Medical History: None Surgical History: - - Tubal ligation Smoking Status: Current every day smoker Alcohol: Heavy Drugs: None Review of Systems All systems negative except as indicated General: Reports: - - Fatigue. Denies: Chills, Fever, Sweats Eyes: Denies: Visual changes - bilaterally, Diplopia ENT: Denies: Rhinorrhea, Sore throat Cardiovascular: Denies: Chest pain, Palpitations Respiratory: Denies: Dyspnea, Cough, Dyspnea on exertion Gastrointestinal: Denies: Abdominal pain, Nausea, Vomiting, Diarrhea Genitourinary: Denies: Dysuria, Hematuria, Frequency Musculoskeletal: Denies: Back pain, Extremity Pain Skin: Denies: Rash, Wounds Neurological: Denies: Headache, Weakness, Numbness Hematologic: Denies: Easy bruising, Easy bleeding Physical Exam Vital Signs/Narrative: Vital Signs Temp Pulse Resp BP Pulse Ox 03/11/20 11:40 98.8 F 96 16 128/79 H 100 Inital Vital Signs reviewed: Yes General: Well nourished, Well developed, No Acute Distress Head: Normocephalic, Atraumatic Eyes: Perrl, EOMI ENT: Moist mucous membranes, No rhinorrhea Neck: Supple, Nontender Cardiovascular: Regular rate, Regular rhythm, No murmurs Respiratory: No distress, CTA bilaterally, Chest nontender Abdomen: Soft, Nontender, Nondistended, Normal bowel sounds Back: Nontender, Normal Inspection Extremities: Nontender, No edema Skin: Normal color, No rash Neurological: Alert, Oriented x3, Cranial nerves II-XII grossly intact, Normal Strength, Normal Sensation Psychological: Normal affect, Normal Mood Diagnostic/Tx/Re-eval - EKG Initial EKG Interpretation: - - Rate of 77 bpm and normal sinus rhythm. Normal intervals. Normal axis. No ST elevations or depressions appreciated. No T wave abnormalities. No prior EKG for comparison. - Medical Decision Making Patient presents emergency department for fatigue and vaginal bleeding. Upon arrival to the emerge department vital signs within normal limits. She does not appear in any acute distress. Not tachycardic. Not hypotensive. Will obtain basic lab work. Patient's lab work did not reveal any significant acute abnormality. Cardiac work-up did not show an elevated troponin, no arrhythmia or signs of ischemia on EKG. Chest x-ray negative for acute cardiopulmonary abnormality. She is not anemic. She states that her vaginal bleeding is slowing down at this point. No abdominal pain on exam. test is negative. I do not feel she needs an ultrasound at this time given the fact that her symptoms are improving. I did make a referral to an [employer] as she does not have one. She is also to follow-up with her PCP. If she develops any chest pain, shortness of breath or worsening symptoms she can return to the emergency department at any time. She understands and is agreeable this plan. Will discharge home in stable condition. ED Disposition - Plan for ED Patient: Disposition: Home or Assisted Living Diagnosis: Fatigue, Menorrhagia Instructions: ED Bleed Irregular Vaginal, ED Weakness [facility] Referrals: Lucero Ruiz MD [STAFF PHYSICIAN] - 1-2 Days if not improving Care Physician,No Primary [Primary Care Provider] - Ladan Campos MD [STAFF PHYSICIAN] - 2 Days
[2020-03-11 12:34] LABS: Absolute Lymphocyte Count 2.76 X10^3/uL (0.83-4.51); Absolute Neutrophil Count 6.9 X10^3/uL (2.0-7.7); Basophil# 0.08 X10^3/uL; Basophil% 0.8 % (0-1); Eosinophil# 0.14 X10^3/uL; Eosinophils% 1.3 % (0-5); Hematocrit 42.3 % (37-47); Hemoglobin 14.4 g/dL (12.0-15.0); Lymphocyte # 2.76 X10^3/ul (4.0); Lymphocyte % 26.4 % (19-41); Mean Corpuscular Hgb 32.8 pg (27.0-32.0); Mean Corpuscular Volume 96.4 fL (81-99); Mean Platelet Vol. 10.6 fl (6.2-12.0); Monocyte# 0.53 X10^3/uL; Monocyte% 5.1 % (0-10); NRBC Flagged by Analyzer 0 % (0-5); Neutrophil # 6.89 X10^3/uL (2.7-7.7); Neutrophil % 65.9 % (47-70); Platelet Count 279 K/mm3 (150-450); RBC Distribution Width CV 12.6 % (11.6-14.6); Red Blood Count 4.39 M/mm3 (4.2-5.4); White Blood Count 10.5 K/mm3 (4.4-11.0)
[2020-03-11 12:35] LABS: Bacteria 0 SEEN /hpf (None Seen); Mucous, Urine 0 SEEN /hpf (<or=2+); Red Blood Cells-Urine 0 SEEN /hpf (0-5); Squamous Epithelial Cells - UA 0 SEEN /hpf (5-10); White Blood Cells 0 SEEN /hpf (0-5)
[2020-03-11 12:38] LABS: Internal QC Validated? YES +Cl - CLEAR BKGD; Pregnancy, Serum, hCG Quali. NEGATIVE Negative
[2020-03-11 12:43] LABS: Color, Urine Yellow (Yellow); Glucose, Dipstick Normal (Normal); Ketone-Dipstick Negative (Negative); Leukocyte Esterase-Dipstick Negative /ul (Negative); Nitrite-Dipstick Negative (Negative); Occult Blood-Urine Negative /ul (Negative); Protein-Dipstick Negative (Negative); Urine Bilirubin Dipstick Negative (Negative); Urine Clarity Clear (Clear); Urine Urobilinogen Normal (Normal)
[2020-03-11 12:49] LABS: AST(SGOT) 13 U/L (15-37); Alanine Aminotransfer ALT/SGPT 14 U/L (13-56); Albumin, Serum 3.7 g/dL (3.2-5.0); Alkaline Phosphatase 65 U/L (45-117); Anion Gap 3 (5-15); BUN 7 mg/dL (7-18); BUN/Creat Ratio 8.4 RATIO (10-20); Calcium,Total 8.8 mg/dL (8.5-10.1); Chloride 107 mmol/L (98-107); Creatinine, Serum 0.83 mg/dL (0.55-1.02); EST Glomerular Filtration Rate 83 mL/min (>60); Est Glom Filt Rate - Afr Amer 100 mL/min (>60); Estimated Creatinine Clearance 82.07 ml/min; Globulin 3.6 g/dL (2.2-4.2); Glucose 114 mg/dL (74-106); Potassium 3.8 mmol/L (3.5-5.1); Protein, Total 7.3 g/dL (6.4-8.2); Sodium Level 138 mmol/L (136-145)
--- NOTE | 2020-03-11 12:55 | RAD_ITS ---
STUDY: X-RAY CHEST REASON FOR EXAM: Female, 34 years old. Fatigue, heavy period TECHNIQUE: Single AP portable view of the chest. COMPARISON: Comparison is made with prior study dated 12/28/2017. FINDINGS: The lungs are clear and expanded. There is no demonstrated pleural abnormality. Normal size heart. Normal mediastinum and kael. Normal visualized pulmonary arteries. Normal visualized aortic arch and descending thoracic aorta. Normal visualized thoracic spine. Normal visualized ribs, clavicles, and shoulders. There is no demonstrated abnormality of the visualized soft tissue structures of the upper abdomen. RAD/Chest 1 View (Portable) IMPRESSION: Normal x-ray examination of the chest. Electronically Signed: Abdon Holder, at 13:21 EDT , Service support ,
[2020-03-11 13:57] VITALS: RESP 17
== END 2020-03-11 13:58 | disposition home or self-care (01) ==
PROVIDERS: Emergency Provider Emergency Medicine
DX: R53.83 Other fatigue (principal); N92.0 Excessive and frequent menstruation with regular cycle; F17.200 Nicotine dependence, unspecified, uncomplicated
CPT/HCPCS: 71045; 80053; 81001; 83735; 84484; 84703; 85025; 93005; 99283; A4216

== ENCOUNTER 2020-07-17 12:46 | Emergency (ER) | payer SELFPAY ==
[2020-07-17 12:47] VITALS: BP 119/83; PULSE 96; RESP 16; TEMP 36.3; O2SAT 99; BMI 25.9
--- NOTE | 2020-07-17 13:07 | ED.DCSUM_ITS ---
- ER Visit Summary Date of Service: 07/17/20 Chief Complaint: Fall History of Present Illness: The patient is a 34 F with no primary care physician. She reports that she drinks daily. 2 days ago while she was intoxicated she fell and hit her right ear on the floor. She did not have loss of consciousness. She not on anticoagulants. However, she reports that she cannot hear from that ear. Reports that she does have a headache, but that that is normal. Physical Examination: Vitals: Stable. Afebrile. HEENT: Right TM is ruptured posteriorly. External auditory canal is normal. Neck: No vertebral tenderness. Full ROM without difficulty. Cleared by NEXUS criteria. Back: No vertebral tenderness. General: A&O x 3. NAD. Cardiovascular exam: Regular rate and rhythm, no murmur, rub or gallop. Respiratory exam: Chest nontender. No crepitus. Clear to auscultation bilaterally. No wheezes or stridor. Abdominal exam: Soft, nontender, nondistended, normal bowel sounds. No pain in RUQ or LUQ specifically. No peritoneal signs. Extremity: Atraumatic. No pain with range of motion. Emergency Department Course and Treatment: Patient is resting comfortably. She refused pain medications. Treatment Plan: Patient is instructed to use a Vaseline coated cottonball when she showers. Follow-up with Dr. Dejesus in 1 week for another exam. Return to the emergency department for any worsening symptoms. Disposition: To home in improved and stable condition. Impression: 1. Ruptured right tympanic membrane, traumatic. This note was generated with [employer] dictation software. It may contain incorrect words, spelling, and punctuation that were not noted in review of the chart prior to signing ED Disposition - Plan for ED Patient: Disposition: Home or Assisted Living Instructions: ED Ruptured Eardrum, Traumatic Referrals: Yobani Dejesus MD [STAFF PHYSICIAN] - 1 Week
== END 2020-07-17 14:03 | disposition home or self-care (01) ==
LOC: ED 13:23
PROVIDERS: Emergency Provider Emergency Medicine
DX: H72.91 Unspecified perforation of tympanic membrane, right ear (principal); F17.200 Nicotine dependence, unspecified, uncomplicated
CPT/HCPCS: 99282

== ENCOUNTER 2020-11-25 08:19 | Day surgery (SDC) | payer OTHER, SELFPAY ==
[2020-11-25] VITALS (7 sets, daily range): BP systolic 103–125; BP diastolic 62–80; PULSE 76–129; RESP 16–20; TEMP 36.7–37.1; O2SAT 92–100; BMI 27.8
--- NOTE | 2020-11-25 06:00 | HP_ITS ---
I have re-examined the patient. There are no clinical changes since date of exam. Intake Intake Visit Reasons: RIGHT SHOULDER Accompanied by: Self Is patient in pain?: Yes Pain scale (1-10): 5 Allergies etodolac Allergy (Mild, Verified 10/27/20 09:50) Hives ketorolac tromethamine [From Toradol] Allergy (Verified 10/27/20 09:50) Other Sulfa (Sulfonamide Antibiotics) Allergy (Verified 10/27/20 09:50) Itching tramadol Allergy (Verified 10/27/20 09:50) Other Medications ibuprofen 200 mg tablet 200 mg PO Q6H PRN 10/27/20 [History Confirmed 10/27/20] Is last menstrual period known: Yes Post menopausal: No PFSH Surgical History History of tubal ligation (Acute) Social History (Updated 10/29/20 @ 12:[address] Tamiko Shields, ) household members: spouse housing: house current occupational status: employed Smoking Status: Heavy Smoker (>10/day) Tobacco: How many years used: 20 alcohol intake: current alcohol intake frequency: holidays/special occasions only substance use type: does not use what type of physical activity do you participate in: none seatbelt use: always do you feel safe at home: Yes HPI RIGHT SHOULDER: Details: Parts of this documentation were recorded by a scribe, this documentation accurately reflects the service provided and the decisions made by me, Dr. Tamiko Shields, 10/27/20 0942. CHANNING CARROLL is a 35 year old F here today to establish as a new [facility] patient. C/o: Right shoulder sprain, Right bicep strain. DOI: 09/28/20. Patient states she was transferring an item from a truck handed off by her partner. Patient grabbed the item and states she actually felt something tear in her right shoulder. Patient brushed it off and took ibuprofen to finish her day. Patient voiced after two hours she could no longer elevate her right arm. Patient left work then went to [employer]. Patient was given an anti-inflammatory and they scheduled her an MRI. Patient had the MRI done and has been attending physical therapy, roughly nine sessions so far. Patient feels the PT is making her pain worse. Denies previous injections and surgeries. Patient is currently taking ibuprofen for pain relief. Patient has been alternating ice packs and heat applications for pain relief as well. Pain is located: anterior shoulder with bicep pain. Patient voiced first two weeks she would have numbness, tingling with stretches during PT. Patient has injured this shoulder previously, claims the posterior of the shoulder. ROS Const Reports system reviewed and no additional complaints, except as docu, Denies chills, Denies fatigue, Denies fever(s), Denies headache(s), Reports weakness ENT Denies headache(s) Card Denies system reviewed and no additional complaints, except as docu, Denies chest pain, Denies shortness of breath Resp Denies system reviewed and no additional complaints, except as docu, Denies chest congestion, Denies cough, Denies shortness of breath GI Denies system reviewed and no additional complaints, except as docu, Denies abdominal pain, Denies constipation, Denies incontinent of stools, Denies loose stools, Denies nausea, Denies vomiting Denies system reviewed and no additional complaints, except as docu, Denies urinary incontinence Musc Reports system reviewed and no additional complaints, except as docu, Reports joint pain, Reports joint swelling, Reports numbness, Denies tingling Skin/Breast Denies system reviewed and no additional complaints, except as docu, Denies changing lesions, Denies dry skin, Denies redness, Denies boil, Denies lesions, Denies new lesions, Denies non-healing lesions, Denies itching, Denies rash, Denies skin ulcer, Denies sores, Denies wounds Neuro No headache(s), Yes numbness, No tingling, Yes weakness Endo Denies fatigue Ortho Exam Right Shoulder Date of injury: 09/28/20 Testing: Positive [place] Assessment & Plan Problems 1. Strain of right biceps, initial encounter S46.211A 2. Sprain of right shoulder, unspecified shoulder sprain type, initial encounter S43.401A Plan Personally reviewed the patient's medical history, medications, surgeries and recent exams if available. Obtained X-rays of patient's right shoulder. Personally reviewed X-rays. See chart for further details. Based on examination and imaging, Due to the poor quality of her MRI, I believe patient is having biceps tendinosis. We will submit for approval of the bicep tendon tear with [facility] d/t the radiologist not reading it. Will submit for Right shoulder scope as well. Will also submit for approval for a injection as well. Patient will continue on light duty, for now. All questions answered. Patient in agreement of plan. Follow up after approval is obtained or sooner if pain, swelling, numbness or associated symptoms, or concerns develop. Orders Orders: Shoulder min 2 Views 10/27/20 M25.511 Coding Level of Care Code Off vis,new,level 3 Diagnoses Strain of right biceps, initial encounter S46.211A ??Encounter type: initial encounter Sprain of right shoulder, unspecified shoulder sprain type, initial encounter S43.401A ??Encounter type: initial encounter ??Shoulder sprain type: unspecified sprain
[2020-11-25] MEDS: Lactated Ringers 1,000 ML 100 ML IV ×2 (08:50→11:00)
[2020-11-25] MEDS: Cefazolin 2 GM in 0.9% Normal Saline 100 ML IV (09:24)
--- NOTE | 2020-11-25 09:35 | OP.PCM_ITS ---
Report of Operation Date of Procedure: 11/25/20 Pre-Operative Diagnosis: right shoulder biceps tendinosis, impingment syndrome Post-Operative Diagnosis: same Surgery/Procedure Performed:: sars, sad/acromioplasty, open biceps subpec tenodesis hazardous materials analyst: Angel Chiu Type of Anesthesia:: General/Regional Anesthesiologist: Yobani Bautista Specimen's removed: biceps tendon Estimated Blood Loss (mL): 10cc ebl Fluids Replaced: 1000ml lr Description of Procedure: Preop note Patient is a 35-year-old female who sustained a work injury to her right arm while lifting she felt a burning sensation in her anterior shoulder. Unable to supinate under maximal strength anteriorly again on her shoulder and nothing radiating into her elbow. MRI confirms biceps tendinosis no other rotator cuff pathology and some AC edema consistent with overuse overhead syndrome. Risk benefits and alternatives were discussed with patient patient failed conservative treatment options she did physical therapy was worsening again anterior shoulder pain on top of her shoulder at the AC joint but really the biceps tendon with positive speeds positive Yergason's and positive impingement sign.. Risk benefits alternatives were discussed with patient risk include but not limited to blood loss, blood clot, infection, neurovascular, failure procedure, loss of life and loss of limb. Patient is aware like proceed with right shoulder arthroscopy para indicated Operative note Patient seen and examined preoperative holding area right shoulder was marked. Patient brought the operating room placed placed supine on the operating table. Signed, anesthesia, antibiotics were administered. Right arm was prepped and draped usual sterile technique after beachchair positioning was maintained. We did recheck her blood pressure pressure blood pressure retirement through the patient positioning and she was stable throughout. All bony promises well- padded SCDs placed on her bilateral lower extremity. Right arm was prepped and draped in usual sterile technique. We marked out our bony landmarks for portal placement. Timeout was performed. We then created anterior lateral and started posterior lateral portal we had good return after insufflated the post from the posterior aspect with 60 cc of normal saline. We then began our diagnostic arthroscopy. We created a posterior portal with 11 blade began it we visualized the glenohumeral joint which is intact. We then created an anterior portal under direct visualization. Her subscap subscap was intact the articular surface of her rotator cuff was intact there were no loose bodies and there was no labral tearing anterior posterior there was however an unstable biceps tendon at the biceps labral junction this was probed and and she also had extensive streaking and erythema along the biceps tendon as well. We then truncated the biceps at the biceps labral enters face we then inserted a shaver and debrided back any loose pieces of labrum to a stable rim. Again the subscap was intact and stable probing as well. It was negative humeral shuck test. We moved to the subacromial space. Patient had extensive bursitis throughout we created a lateral portal under direct visualization. We performed extensive bursectomy and acromioplasty in standard technique. We did coagulate any bleeders we encountered and irrigated with copious amounts of sterile saline. We then moved to our open biceps subpec tenodesis. We reprepped the area waited the allotted 3 minutes made about a 2 cm incision just inferior to the insertion of the pec meet with a 15 blade. We then dissected down tenotomies to level the biceps sheath biceps sheath was excised the biceps tendon was brought out of the incision we cut we measured the appropriate length and truncated the biceps tendon sent to pathology for further evaluation. We then whipstitched the end of the biceps tendon you drilled unicortical he and then placed our Arthrex pec button in a Kurlander standard technique. We then oversewed with a free needle the tendon to periosteum. We then irrigated the shoulder with copious the incision ensued with copious amounts of sterile saline. The incision was closed with subcu 5-0 Vicryl and Steri's. The portals were closed with interrupted 4-0 nylon stitches. Sterile dressings were applied. Patient was placed in a postop sling. Patient taught procedure well no complication transfer recovery room in stable condition. Postoperative Nonweightbearing right upper extremity Do not actively move the elbow for 6 weeks Follow-up in 2 weeks in the office Call with increased pain numbness tingling further issues arise Pharmacy has prescriptions This note was generated with [employer] software. It may contain incorrect words, spelling, and punctuation that were not noted in checking the note before signing.
--- NOTE | 2020-11-25 09:35 | PCM.DC.ORTHO ---
Discharge Diet: No Restrictions - May get incision wet after 4 days, remove dressing apply Band-Aids at that time, call with increased pain numbness tingling or further issues arise, follow-up in 2 weeks unless, arm in sling may use wrist and hand as tolerated, may move shoulder pendulums postop as tolerated, no active elbow bending Discharge Activity: May Not Drive May shower in (days): 1 Ice area for (Minutes): 20 - Every hour while awake. Weight Bearing Status: Weight bearing as tolerated Keep extremity elevated above heart level: Operative Extremity Call your doctor if your incision/area has: Continuous Slow Oozing, Sudden Increased Bleeding, Increased Pain/ Swelling, Increased Redness, Foul Smelling Discharge Call your doctor if you observe: Fever of 101 or Higher, Coldness, Increased Pain, Numbness or Tingling, Change in Color, Calf discomfort Allergies/Adverse Reactions: Allergies etodolac Allergy (Mild, Verified 11/24/20 07:53) Hives ketorolac tromethamine [From Toradol] Allergy (Verified 11/24/20 07:53) Other HALLUCINATIONS Sulfa (Sulfonamide Antibiotics) Allergy (Verified 11/24/20 07:53) Itching tramadol Allergy (Verified 11/24/20 07:53) Other HALLUCINATION Medications to take at Discharge Oxycodone HCl/Acetaminophen [Percocet 5/325] 1 - 2 tablet PO Q6H PRN PRN 5 Days #28 tablet 11/25/20 Zolpidem Tartrate [Ambien (Generic)] 5 mg PO QHS PRN PRN #14 tab 11/25/20 The following prescriptions were given: Zolpidem Tartrate [Ambien (Generic)] 5 mg PO QHS PRN PRN #14 tab PRN Reason: Insomnia Transmission Status: Received by [facility] Oxycodone HCl/Acetaminophen [Percocet 5/325] 1 - 2 tablet PO Q6H PRN PRN 5 Days #28 tablet PRN Reason: Pain Transmission Status: Received by [facility] Primary Care Physician: Care Physician,No Primary [Primary Care Provider] - Test Results: Test results from this visit will be discussed in further detail at your follow-up appointment, if applicable. Please Follow Up With: Tamiko Shields, DO - [phone]
--- NOTE | 2020-11-25 09:40 | TESH_PTH ---
PATIENT: CHANNING CARROLL [place] [facility] [id number] AGE/SX: 35/F ROOM: RE11/25/[address]: Dr. Tamiko Shields, : 1985 BED: DIS: 11/25/2020 SPEC #: [id number] RECD: 11/25/20 12:46 STATUS: CEDRIC REGuillermo #: [id number] KARL: 11/25/20 09:[address]: Tamiko Shields DEPT: SURGICAL PATHOLOGY RECD BY: Akilah Luis ENTERED: 11/25/20 13:01 SP TYPE: TENDON OTHR DR: No Primary Care Phys Tissues: Tendon and tendon sheath, NOS Procedures: Surgery Specimen Level III HEADER OPERATION: Arthroscopy, shoulder, subacromial decompression, acromioplasty PRE-OP DIAGNOSIS: Strain of right biceps; sprain of right shoulder TISSUE SUBMITTED: Biceps tendon MICROSCOPIC DIAGNOSIS Biceps tendon, acromioplasty: A piece of dense fibroconnective tissue with reactive changes. PATRICIA:bambi 11/26/2020 MICROSCOPIC DESCRIPTION Slides are reviewed. GROSS DESCRIPTION Received in fixative is one container labeled with the patient's name and designated right biceps tendon. The specimen consists of a piece of young, tendinous tissue measuring 3.2 x 0.5 x 0.2 cm. The entire specimen is submitted in one cassette. / PATRICIA:bambi 11/25/20 TC:5 CPT: 49936
[2020-11-25] MEDS: Epinephrine (1 mg/ml) 1 MG/ML VIAL (09:59)
[2020-11-25] MEDS: Mupirocin Ointment 22gm Tube 1 APPLIC (10:39)
[2020-11-25] MEDS: HYDROcodone Bitartrate/Apap 5/325 Tablet PO (13:13)
== END 2020-11-25 13:57 | disposition home or self-care (01) ==
LOC: SDC 08:20 → AC 08:21
PROVIDERS: Referring Provider Orthopaedic Surgery; Visit Provider Orthopaedic Surgery
PROC: (CPT 29827; principal; 2020-11-25 09:20)
DX: S46.211A Strain of muscle, fascia and tendon of other parts of biceps, right arm, initial encounter (principal); S43.401A Unspecified sprain of right shoulder joint, initial encounter; M75.41 Impingement syndrome of right shoulder; Z20.828 Contact with and (suspected) exposure to other viral communicable diseases; F17.200 Nicotine dependence, unspecified, uncomplicated; X50.0XXA Overexertion from strenuous movement or load, initial encounter; Y93.89 Activity, other specified; Y99.0 Civilian activity done for income or pay; Y92.9 Unspecified place or not applicable; F41.9 Anxiety disorder, unspecified; F32.9 Major depressive disorder, single episode, unspecified
CPT/HCPCS: 01716; 23430; 29826; 29827; 64415; 87426; 88304; C9803; J7120; J2405